=== PATIENT | female | born 1950 | race Caucasian/White ===

== ENCOUNTER → 2019-10-07 | Outpatient (CLI) | payer MEDICARE | LOC: MC.RAD 08:45 | DX: Z12.31 Encounter for screening mammogram for malignant neoplasm of breast (principal) ==

== ENCOUNTER → 2021-09-26 | Outpatient (CLI) | payer MEDICARE | LOC: MC.RAD 09:12 | DX: Z12.31 Encounter for screening mammogram for malignant neoplasm of breast (principal) ==